=== PATIENT | female | born 1950 | race Caucasian/White ===

== ENCOUNTER 2020-05-28 11:41 | Emergency (ER) | payer MEDICARE ==
[2020-05-28] MEDS ORDERED: methylPREDNISolone Sod Succ/PF 125 MG/2 ML VIAL ONE (11:52)
== END 2020-05-28 15:31 | disposition home or self-care (01) ==
LOC: MADERS 11:41
DX: T63.441A Toxic effect of venom of bees, accidental (unintentional), initial encounter (principal); E78.5 Hyperlipidemia, unspecified; E78.00 Pure hypercholesterolemia, unspecified; I10 Essential (primary) hypertension; F17.210 Nicotine dependence, cigarettes, uncomplicated; Z79.82 Long term (current) use of aspirin; Z79.899 Other long term (current) drug therapy
CPT/HCPCS: 96374; J2930

== ENCOUNTER 2021-12-15 12:49 | Emergency (ER) | payer MEDICARE ==
[2021-12-15 13:20] LABS: #Basophils 0.1 thou/uL (0.0-0.2); #Eosinphils 0.3 thou/uL (0.0-0.7); #Lymphocytes 1.3 thou/uL (1.20-3.40); #Monocytes 0.6 thou/uL (0.11-0.59); #Neutrophils 11.4 thou/uL (1.40-6.50); %Basophils 0.7 % (0.0-1.0); %Eosinophils 2.5 % (0.0-10.0); %Lymphocytes 9.3 % (21.0-51.0); %Monocytes 4.5 % (0.0-10.0); Hemoglobin 16.4 g/dL (12.0-16.0); Mean Corpuscular HGB CONC 31.6 g/dL (32.0-36.0); Mean Corpuscular Hemoglobin 27.8 pg (27.0-31.0); Mean Corpuscular Volume 87.9 fL (78.0-98.0); Mean Platelet Volume 7.8 fL (7.4-10.4); Platelet Count 250 thou/uL (130-400); RBC Distribution Width 12.4 % (11.5-14.5); White Blood Cell (WBC) Count 13.7 thou/uL (4.8-10.8)
[2021-12-15] MEDS ORDERED: Sodium Chloride 0.9% 250 ML 250 ML ONE (13:23)
[2021-12-15] MEDS ORDERED: methylPREDNISolone Sod Succ/PF 125 MG/2 ML VIAL ONE (13:23)
[2021-12-15 13:35] LABS: ALT (SGPT) 16 U/L (8-55); AST (SGOT) 15 U/L (5-34); Albumin 4.1 g/dL (3.4-4.8); Alkaline Phosphatase 88 U/L (40-110); Anion Gap 17 mmol/L (10-20); BUN (Urea Nitrogen) 17 mg/dL (9.8-20.1); Bilirubin, Total 1.6 mg/dL (0.2-1.2); Calc. Creatinine Clearance 0 mL/min (70-130); Calcium 9.9 mg/dL (7.8-10.44); Carbon Dioxide 27 mmol/L (23-31); Chloride 99 mmol/L (98-107); Globulin 3.3 g/dL (2.4-3.5); Glucose 120 mg/dL (83-110); Magnesium 1.9 mg/dL (1.6-2.6); Potassium 4.2 mmol/L (3.5-5.1); Protein, Total 7.4 g/dL (5.8-8.1); Sodium 139 mmol/L (136-145)
[2021-12-15 14:11] LABS: SARS-CoV-2 NAA Rapid Test Not Detected (NotDetected)
[2021-12-15 15:59] LABS: Base Excess-Venous 2.3 mmol/L (-2.0 to 3.0); Bicarbonate (HCO3v) 28.5 mmol/L (22.0-28.0); CO2 Tension (PvCO2) 48.1 mmHg (42.0-51.0); vO2 Saturation-calc 87.6 % (60.0-85.0)
[2021-12-15 16:01] LABS: Calcium, Ionized 1.23 mmol/L (1.15-1.33); Chloride 103 mmol/L (98-107); Potassium 3.9 mmol/L (3.5-5.1); Sodium 139 mmol/L (138-145); T. Carbon Dioxide 26.8 mmol/L (22.0-28.0)
[2021-12-15] MEDS ORDERED: methylPREDNISolone Sod Succ/PF 125 MG/2 ML VIAL IVP SCH (22:00)
== END 2021-12-15 16:58 | disposition short-term general hospital (02) ==
LOC: MADERS 12:49
DX: J44.1 Chronic obstructive pulmonary disease with (acute) exacerbation (principal); J96.00 Acute respiratory failure, unspecified whether with hypoxia or hypercapnia; E87.6 Hypokalemia; D72.829 Elevated white blood cell count, unspecified; I10 Essential (primary) hypertension; E78.5 Hyperlipidemia, unspecified; E78.00 Pure hypercholesterolemia, unspecified; F17.210 Nicotine dependence, cigarettes, uncomplicated; Z20.822 Contact with and (suspected) exposure to COVID-19; Z79.82 Long term (current) use of aspirin; Z79.899 Other long term (current) drug therapy
CPT/HCPCS: 0240U; 71045; 80053; 82330; 82435; 82803; 83605; 83735; 83880; 84132; 84295; 84484; 85014; 85025; 87040; 93005; 96374; 99285; 36415; J2930; J7050; J7620

== ENCOUNTER 2023-11-14 10:03 | Emergency (ER) | payer MEDICARE ==
[2023-11-14] MEDS ORDERED: methylPREDNISolone Sod Succ/PF 125 MG/2 ML VIAL ONE (10:44)
== END 2023-11-14 11:30 | disposition home or self-care (01) ==
LOC: MADERS 10:03
DX: S00.86XA Insect bite (nonvenomous) of other part of head, initial encounter (principal); I11.0 Hypertensive heart disease with heart failure; I50.9 Heart failure, unspecified; J44.9 Chronic obstructive pulmonary disease, unspecified; I49.3 Ventricular premature depolarization; E78.00 Pure hypercholesterolemia, unspecified; F17.210 Nicotine dependence, cigarettes, uncomplicated; I71.40 Abdominal aortic aneurysm, without rupture, unspecified; Z79.82 Long term (current) use of aspirin; Z79.899 Other long term (current) drug therapy; W57.XXXA Bitten or stung by nonvenomous insect and other nonvenomous arthropods, initial encounter
CPT/HCPCS: 96374; J2930

== ENCOUNTER 2023-11-25 15:05 | Emergency (ER) | payer MEDICARE ==
[2023-11-25] MEDS ORDERED: Ipratropium/Albuterol 3 ML NEB ONE (15:29)
[2023-11-25] MEDS ORDERED: methylPREDNISolone Sod Succ/PF 125 MG/2 ML VIAL ONE (15:29)
[2023-11-25 15:58] LABS: Hematocrit 44.8 % (36.0-47.0); Hemoglobin 14.8 g/dL (12.0-16.0); Mean Corpuscular HGB CONC 33.2 g/dL (32.0-36.0); Mean Corpuscular Hemoglobin 30.7 pg (27.0-31.0); Mean Corpuscular Volume 92.6 fl (78.0-98.0); Mean Platelet Volume 8.5 fL (7.4-10.4); Platelet Count 242 10x3/uL (130-400); RBC Distribution Width 11.8 % (11.5-14.5); Red Blood Cell (RBC) Count 4.83 mill/uL (4.20-5.40); White Blood Cell (WBC) Count 26.5 10x3/uL (4.8-10.8)
[2023-11-25 16:02] LABS: Eosinophils 1 % (0-10); Lymphocytes 10 % (21-51); MDiff Complete? YES; Monocytes 2 % (0-10); Neutrophil 87 % (42-75)
[2023-11-25 16:03] LABS: ALT (SGPT) 68 U/L (8-55); AST (SGOT) 58 U/L (5-34); Albumin 3.6 g/dL (3.4-4.8); Alkaline Phosphatase 86 U/L (40-110); Anion Gap 15 mmol/L (10-20); BUN (Urea Nitrogen) 22 mg/dL (9.8-20.1); Bilirubin, Total 1.9 mg/dL (0.2-1.2); Calc. Creatinine Clearance 0 mL/min (70-130); Calcium 9.5 mg/dL (7.8-10.44); Carbon Dioxide 39 mmol/L (23-31); Estimated GFR 49; Globulin 3.3 g/dL (2.4-3.5); Glucose 93 mg/dL (83-110); Manual Diff?? YES; Protein, Total 6.9 g/dL (5.8-8.1)
[2023-11-25 16:04] LABS: Platelet Adequacy Comment Appears Adequate; RBC Morph Comment Within Normal Limits; Troponin I 0.022 ng/mL (< 0.028)
[2023-11-25 16:10] LABS: Chloride 89 mmol/L (98-107); Potassium 3.2 mmol/L (3.5-5.1); Sodium 139 mmol/L (136-145)
== END 2023-11-25 16:50 | disposition home or self-care (01) ==
LOC: MADERS 15:05
DX: J44.1 Chronic obstructive pulmonary disease with (acute) exacerbation (principal); I11.0 Hypertensive heart disease with heart failure; I50.9 Heart failure, unspecified; E78.00 Pure hypercholesterolemia, unspecified; F17.210 Nicotine dependence, cigarettes, uncomplicated; Z79.899 Other long term (current) drug therapy; Z79.82 Long term (current) use of aspirin
CPT/HCPCS: 71045; 80053; 83880; 84484; 85025; 93005; 94640; 96374; J2930; J7620

== ENCOUNTER 2023-12-04 11:46 | Outpatient (CLI) | payer MEDICARE | END 2023-12-04 11:47 | disposition home or self-care (01) | LOC: MADRAD 11:46 | PROVIDERS: ATTEND Registered Nurse | DX: M25.562 Pain in left knee (principal); M25.531 Pain in right wrist; S52.501A Unspecified fracture of the lower end of right radius, initial encounter for closed fracture; S52.614A Nondisplaced fracture of right ulna styloid process, initial encounter for closed fracture; R93.7 Abnormal findings on diagnostic imaging of other parts of musculoskeletal system ==

== ENCOUNTER 2025-08-03 14:59 | Emergency (ER) | payer OTHER ==
[2025-08-03] MEDS ORDERED: cefTRIAXone (ROCEPHIN) 2 GM VIAL ONE (15:41)
[2025-08-03] MEDS ORDERED: Azithromycin 500 MG VIAL ONE (15:43)
[2025-08-03] MEDS ORDERED: Albuterol 2.5 MG (0.5 mL) NEB ONE (15:46)
[2025-08-03] MEDS ORDERED: Albuterol 2.5 MG (3 mL) NEB ONE (15:46)
[2025-08-03 16:14] LABS: Hematocrit 40.5 % (36.0-47.0); Hemoglobin 12.9 g/dL (12.0-16.0); MDiff Complete? YES; Mean Corpuscular Hemoglobin 29.6 pg (27.0-31.0); Mean Corpuscular Volume 92.8 fl (78.0-98.0); Platelet Adequacy Comment Appears Adequate; Platelet Count 226 10x3/uL (130-400); Red Blood Cell (RBC) Count 4.37 mill/uL (4.20-5.40); White Blood Cell (WBC) Count 21.5 10x3/uL (4.8-10.8)
[2025-08-03 16:18] LABS: ALT (SGPT) Less than 4 U/L (Less than 34); AST (SGOT) 19 U/L (11-34); Albumin 2.9 g/dL (3.1-4.5); Alkaline Phosphatase 72 U/L (40-110); Anion Gap 18 mmol/L (10-20); BUN (Urea Nitrogen) 52 mg/dL (9.8-20.1); Bilirubin, Total 1.2 mg/dL (0.3-1.2); Calc. Creatinine Clearance 0 mL/min (70-130); Calcium 9.1 mg/dL (7.8-10.44); Carbon Dioxide 30 mmol/L (23-31); Chloride 97 mmol/L (98-107); Globulin 3.8 g/dL (2.4-3.5); Glucose 161 mg/dL (83-110); Potassium 3.9 mmol/L (3.5-5.1); Sodium 141 mmol/L (136-145)
[2025-08-03 16:20] LABS: Bicarbonate (HCO3v) 32.5 mmol/L (22.0-28.0); CO2 Tension (PvCO2) 76.6 mmHg (42.0-51.0); Calcium, Ionized 1.13 mmol/L (1.15-1.33); Chloride 99 mmol/L (98-107); Hemoglobin - Calc 15.0 g/dL (12.0-16.0); Potassium 3.7 mmol/L (3.5-5.1); Sodium 139 mmol/L (138-145); T. Carbon Dioxide 34.9 mmol/L (22.0-28.0); vO2 Saturation-calc 52.9 % (60.0-85.0)
[2025-08-03] MEDS ORDERED: Furosemide 20 MG (2 mL) VIAL ONE (16:55)
[2025-08-03 19:25] LABS: Bicarbonate (HCO3v) 32.5 mmol/L (22.0-28.0); CO2 Tension (PvCO2) 88.2 mmHg (42.0-51.0); Calcium, Ionized 1.21 mmol/L (1.15-1.33); Chloride 102 mmol/L (98-107); Hemoglobin - Calc 13.6 g/dL (12.0-16.0); Potassium 3.8 mmol/L (3.5-5.1); Sodium 142 mmol/L (138-145); T. Carbon Dioxide 35.2 mmol/L (22.0-28.0); vO2 Saturation-calc 72.6 % (60.0-85.0)
== END 2025-08-03 19:18 | disposition short-term general hospital (02) ==
LOC: MADERS 14:59
DX: A41.9 Sepsis, unspecified organism (principal); J44.1 Chronic obstructive pulmonary disease with (acute) exacerbation; J96.92 Respiratory failure, unspecified with hypercapnia; J18.9 Pneumonia, unspecified organism; D72.829 Elevated white blood cell count, unspecified; E88.09 Other disorders of plasma-protein metabolism, not elsewhere classified; E80.7 Disorder of bilirubin metabolism, unspecified; R79.89 Other specified abnormal findings of blood chemistry; E78.00 Pure hypercholesterolemia, unspecified; I10 Essential (primary) hypertension; F17.210 Nicotine dependence, cigarettes, uncomplicated; Z79.899 Other long term (current) drug therapy; Z79.82 Long term (current) use of aspirin; Z79.51 Long term (current) use of inhaled steroids
CPT/HCPCS: 36415; 71045; 80053; 82330; 82435; 82803; 83605; 83880; 84132; 84295; 85014; 85025; 87040; 87428; 93005; 94660; 94760; 96365; 96367; 96375; J0456; J0696; J1940; J7030; J7050; J7611